=== PATIENT | male | born 1955 | race Caucasian/White ===

== ENCOUNTER 2020-01-29 09:48 | Outpatient (CLI) | payer BC, SELFPAY ==
--- NOTE | ~2020-01-29 | XR_ITS ---
XR_CERV2-3V_CR DATE: 01/29/2020 10:07 INDICATION: Neck pain, right shoulder pain TECHNIQUE: AP, open-mouth, lateral views COMPARISON: None FINDINGS: No fracture or dislocation or locked facet. C1 and C2 are normally aligned and the odontoid process is intact. No prevertebral soft tissue swelling. There is mild degenerative disc disease at C3-4. There is moderate degenerative disc disease at C4-5. There is mild degenerative disc disease at C5-6. There is uncovertebral joint spurring in the mid to lower cervical spine, most prominent on the right at C5-6 and C4-5. This may account for the right shoulder pain. IMPRESSION: Mild to moderate degenerative change of the cervical spine. Uncovertebral joint spurring of the mid to lower cervical spine, most prominent on the right at C4-5 and C5-6, which may account for the right shoulder pain Reviewed, dictated and finalized at [facility]. Reviewed, dictated and finalized at location [facility].
--- NOTE | ~2020-01-29 | XR_ITS ---
XR shoulder RT min 2V DATE: 01/29/2020 10:07 INDICATION: Right shoulder and neck pain TECHNIQUE: 4 views COMPARISON: None FINDINGS: There is mild osteoarthritis at the glenohumeral joint. No fracture or dislocation, periosteal reaction or bone destruction or significant abnormal calcifica tion is noted at the right shoulder joint. IMPRESSION: Mild right glenohumeral joint osteoarthritis Reviewed, dictated and finalized at location [facility].
== END 2020-01-29 09:49 | disposition home or self-care (01) ==
PROVIDERS: PCP Family Medicine; Visit Provider Physician Assistant
DX: M75.81 Other shoulder lesions, right shoulder (principal); M54.12 Radiculopathy, cervical region; M46.02 Spinal enthesopathy, cervical region; M19.011 Primary osteoarthritis, right shoulder
CPT/HCPCS: 72040; 73030

== ENCOUNTER 2020-09-20 08:42 | Outpatient (CLI) | payer BC, SELFPAY ==
--- NOTE | 2020-09-20 08:45 | ECG_ITS ---
Measurements Intervals [place] Rate: 63 P: 41 VA: 235 QRS: -29 QRSD: 106 T: 1 QT: 375 QTc: 386 Interpretive Statements SINUS RHYTHM WITH FIRST DEGREE AV BLOCK DELAYED PRECORDIAL R/S TRANSITION BORDERLINE T WAVE ABNORMALITY- INFERIOR LEADS BASELINE ARTIFACT- I, II, III, AVR, AVL, AVF ABNORMAL ECG Electronically Signed On 09-20-2020 10:47:22 TRACK PRODUCTION ENGINEER by Tano De La Garza D.O.
[2020-09-20 09:21] LABS: Potassium 4.2 mmol/L (3.4-5.0)
[2020-09-20 09:24] LABS: Blood Urea Nitrogen 22 mg/dL (9-20)
[2020-09-20 09:25] LABS: Anion Gap 7 mmol/L (8-16); Calcium 9.2 mg/dL (8.4-10.2); Carbon Dioxide 31 mmol/L (22-30); Chloride 99 mmol/L (98-107); Estimated Glomerular Filt Rate > 60; Glucose 104 mg/dL (75-110); Sodium 137 mmol/L (137-145)
== END 2020-09-20 08:43 | disposition home or self-care (01) ==
LOC: ANHSURGERY 08:45
PROVIDERS: Anesthesiology; PCP Family Medicine; Visit Provider Orthopaedic Surgery
DX: Z01.818 Encounter for other preprocedural examination (principal); I10 Essential (primary) hypertension; Z79.899 Other long term (current) drug therapy; R94.31 Abnormal electrocardiogram [ECG] [EKG]
CPT/HCPCS: 36415; 80048; 93005

== ENCOUNTER 2020-09-25 01:23 | Outpatient (CLI) | payer BC, SELFPAY ==
[2020-09-25 19:31] LABS: SARS-CoV-2 RNA PCR Negative
== END 2020-09-25 01:24 | disposition home or self-care (01) ==
LOC: ANHCOVIDDT 01:23
PROVIDERS: PCP Family Medicine; Visit Provider Orthopaedic Surgery
DX: Z01.812 Encounter for preprocedural laboratory examination (principal); Z20.828 Contact with and (suspected) exposure to other viral communicable diseases
CPT/HCPCS: 87635; C9803; U0003

== ENCOUNTER 2020-09-27 00:39 | Day surgery (SDC) | payer BC, SELFPAY ==
[2020-09-16 14:24] VITALS: BMI 33.5
[2020-09-27] VITALS (9 sets, daily range): BP systolic 117–155; BP diastolic 62–77; PULSE 76–91; RESP 16–19; TEMP 36.2–36.5; O2SAT 92–100; BMI 33.6
--- NOTE | 2020-09-27 08:23 | WPDANESEPPF ---
Anes - Initial Pre Proc Eval Procedure: Operation Date: 09/27/20 11:00 Proposed Procedures p Right Shoulder Arthroscopy,Subacromial Decompression, Proceed As Indicated - Enrique Wesley MD Date/Time: 09/27/20 08:23 Surgeon: Enrique Wesley MD Pre Op Diagnosis: Right Shoulder Impingement Patient Data Age: 65 Gender: M Height: 1.73 m Weight: 100 kg Allergies Allergy/AdvReac Type Severity Reaction Status Date / Time No Known Allergies Allergy Verified 09/27/20 09:23 Home Medications Medication Instructions Recorded Confirmed Type needle (disp) 25 gauge 25 gauge x #100 each 08/01/19 09/16/20 Rx 1 1/2 syringe with needle 3 mL 25 x 1 #100 each 10/21/19 09/16/20 Rx 1/2 irbesartan 300 1 tablet PO DAILY #90 tablet 10/28/19 09/27/20 Rx mg-hydrochlorothiazide 12.5 mg tablet sildenafil 100 mg tablet 100 mg PO DAILY PRN #10 tablet 01/14/20 09/27/20 Rx testosterone cypionate 200 mg/mL 200 mg IM .COMPLEX #10 ml 01/14/20 09/27/20 Rx intramuscular oil Patient hx anesthesia problems: none Family hx anesthesia problems: none PMFSH Past Medical History Medical History BMI 32.0-32.9,adult BMI 34.0-34.9,adult Hypertension Primary osteoarthritis, right shoulder Surgical History Surgical History History of carpal tunnel release Family History Family History Mother Hypertension Grandparent Family history of cardiovascular disease Family history of congestive heart failure, Onset Age: 80 Father Patient's father is in good health Social History Social History Smoking packs per day: 1.5 Smoking cigarettes per day: 30.0 Years smoked: 40 Smoking pack-years: 60.00 Smoking status: Former smoker Tobacco type: cigarettes Alcohol intake: never Substance use: current Substance use type: marijuana Last use: 2011 Living arrangements: with family 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 Gender identity (if verbalized by the patient): Male Sexual Orientation (if Verbalized by the Patient): Straight or Heterosexual Spiritual care concerns: No Anes - Eval Final PreProcedure Day of Procedure 09/27/20 08:23 Patient weight: obese Heart: regular rate and rhythm Lungs: clear to auscultation and normal air movement Airway: Mallampati scale class II Neurological: alert and oriented Last oral intake: >/= 8 hours ASA classification: III Emergent: no Anesthetic plan: proceed Anesthesia type and monitoring: general ETT and standard monitoring Informed Consent: The patient's anesthetic plan and its attendant risks and benefits were discussed with the patient/family/POA. Questions were solicited and answers provided to the satisfaction of the patient/family/POA.
--- NOTE | 2020-09-27 08:24 | WPDANESPNB ---
Anes - Peripheral Nerve Block Date/Time: 09/27/20 08:24 I have discussed with the patient/family/POA the placement of a peripheral nerve block for post-operative pain management, including associated risks, benefits, complications, and side effects. Alternative methods of post-operative analgesia were detailed. Questions were solicited and answers provided to the satisfaction of the patient/family/POA. Time-Out: A pre-procedural Time-Out was completed immediately before starting the procedure and confirmed: Patient Identification, Site, Procedure, Patient Position and the Availability of Requisite Equipment. Clinical Indications: Acute post-operative pain management requested by the operative surgeon. Nerve Block Insertion Note Anes-nerve block: interscalene right Patient position: supine Skin prep: chlorhexidine Needle: 22 gauge, stimulating, insulated echogenic needle. Needle length: 50 mm Technique: ultrasound Injectate: bupivacaine 0.5% with epi 5 mcg/ml (30cc) Observations: tolerated well Complications: none Procedure start time:: 1036 Procedure end time:: 1038
[2020-09-27] MEDS: ACETAMINOPHEN 500 MG TABLET 1000 MG PO (09:45)
[2020-09-27] MEDS: LACTATED RINGERS 1,000 ML 30 ML IV CONT ×2 (09:45→12:01)
[2020-09-27] MEDS: KETOROLAC 15 MG/ML VIAL (*BKC) IV PUSH (09:45)
--- NOTE | 2020-09-27 10:20 | WPDHPUPDATE1 ---
History and Physical Update Update Date/Time: 09/27/20 10:20 History and Physical has been reviewed, including an updated exam of the patient. There are NO changes in the patient's condition. Risks, benefits, and alternatives have been discussed and questions answered. Patient agrees to proceed with procedure.
--- NOTE | 2020-09-27 10:25 | SUR.PREOP ---
PT RECEIVING NERVE BLOCK
[2020-09-27] MEDS: ceFAZolin 2 GM/D5W 50 ML 2 GM/50 ML BAG IVPB (10:45)
[2020-09-27] MEDS: LIDO 1%/EPINEPHRINE 1:100,000 50 ML VIAL 20 ML INFILTRATE (11:33)
--- NOTE | 2020-09-27 11:59 | PM.PROC ---
Procedure Note - Detailed Date of procedure: 09/27/20 Pre-op diagnosis: Right Shoulder Impingement Post-op diagnosis: same Procedure performed: Right shoulder arthroscopy with limited intra-articular synovectomy and arthroscopic subacromial decompression Description of procedure: The patient was identified and proper site identified. In the preop holding area the anesthesia team performed a right upper extremity block. He was then taken to the operating, transferred to the OR table and after general anesthetic induction and intubation placed into the semi beach chair position in the usual manner for a right shoulder procedure. His head was secured taking care to neither rotate or extend the head neck. The right upper extremity was prepped and draped free in the usual sterile fashion. 10 mL of 1% lidocaine and epinephrine solution was injected into the subacromial space at the start of the procedure, and an additional 10 at the end. 10 cc of 1% lidocaine and epinephrine solution was injected in the area of the portals. Posterior portal was established and under direct visualization anterior outflow was created. Intra-articularly, there was quite a bit of degeneration of the articular surfaces of the glenoid as well as the humeral head. There is also moderate amount of synovitis. The anterior portion of supraspinatus attachment had some fraying at the undersurface this gently debrided with the shaver as was some the flame some medial tissue. Arthrocare Wand was used for hemostasis. Next the scope, outflow and shaver were placed into the subacromial space. Lateral working portal was used. Extensive subacromial debridement removing thickened bursal tissue was carried out. The undersurface of the acromion was cleared of soft tissue with the ArthroCare Wand and the CA ligament was released from the anterior portion of the acromion. Hemostasis was also carried out with the ArthroCare Wand in the subacromial space. The entire surgical area was irrigated with saline solution and the equipment was removed. Portals were closed with three 0 nylon suture and sterile dressings applied. He tolerated the procedure well. He was awakened, extubated and taken to recovery area in stable condition. There were no known intraoperative complications. Estimated blood loss was negligible. He received perioperative antibiotics. Anesthesia: GLMA Surgeon: Enrique Wesley MD Leasing Property Manager: Abbi Herr Estimated blood loss (mL): 15 Drains: No Packing: No Pathology: none sent Complications: No immediate complications Condition: stable Disposition: PACU
--- NOTE | 2020-09-27 13:52 | SUR.PHASEII ---
PATIENT ASSISTED WITH DRESSING TO HOLD HIS RIGHT ARM. SLING INTACT WITH ICE TO RIGHT SHOULDER.
== END 2020-09-27 14:00 | disposition home or self-care (01) ==
PROVIDERS: PCP Family Medicine; Visit Provider Orthopaedic Surgery
PROC: (CPT 29805; principal; 2020-09-27 11:00)
DX: M75.41 Impingement syndrome of right shoulder (principal); M65.811 Other synovitis and tenosynovitis, right shoulder; M19.011 Primary osteoarthritis, right shoulder; G89.18 Other acute postprocedural pain; I10 Essential (primary) hypertension; Z87.891 Personal history of nicotine dependence; E66.9 Obesity, unspecified; Z68.33 Body mass index [BMI] 33.0-33.9, adult
CPT/HCPCS: 29823; 64415; A4565; A9270; J0690; J1885; J2250; J2405; J2704; J3010; J7120

== ENCOUNTER 2020-10-26 10:00 | Outpatient (RCR) | payer BC, SELFPAY ==
[2020-09-29 09:33] VITALS: BP_SYST 85
--- NOTE | 2020-09-29 10:26 | PTOPEVAL ---
PHYSICAL THERAPY EVALUATION AND PLAN OF CARE Thank you for referring Jose Ramon Helm to [facility].? The patient is scheduled to be seen for therapy?2x/week for 3-6 weeks. Please review, sign, date and return this plan of care RAPHAEL. I agree with and certify that the following plan of care is medically necessary. Referring Physician Date Attending Provider: Enrique Wesley MD Evaluation Outpatient Past Medical History Cardiovascular History Hx Hypertension Yes Hx Other Cardiac Disorders Yes: HYPERLIPIDEMIA Musculoskeletal History Hx Arthritis Yes Hx Fractures Yes: FINGERS Hx Other Musculoskeletal Disorders Yes: CARPAL TUNNEL Pain History Has Past Pain Affected Your Daily Life Yes: RT SHOULDER Anesthesia History Hx Post-Op Nausea/Vomiting Yes right arthroscopy shoulder Onset 09/27/2020 Subjective Information Surgery s/p 2 days to debride Query Text:As Reported By Patient/ and perform arthroscopy of Family right shoulder. Since nerve block wore off he states that if he does not move it, it does not hurt. He can straighten and bend elbow. Sleeping sitting in recliner. Does have pain medication available orally. Self Report Pain Assessment Right Shoulder(s) Reported Pain Level 0 Pain Description Aching Pain Frequency Acute,Continuous Lowest Pain Intensity 0 Greatest Pain Intensity 8 Other Pain Aggravating Factors movement Pain Score Pain Score 0: Self Report Interventions Used Interventions Used By Clinicians Exercise,Ice Pain Relief Interventions Used By Ice,Medication Patient Upper Extremity Range of Motion Scapular/ Shoulder Range of Motion Right Reason Not Measured Surgery Precautions Shoulder Flexion - Passive 110 Shoulder Abduction - Passive 85 Shoulder Lateral Rotation - Passive 55 Upper Extremity Muscle Strength Testing General Upper Extremity Strength Gross Upper Extremity Strength Comments performed full AROM of right elbow, wrist, and fingers; discussed allowing arm to rest at side or to use sling, but not to hold the arm up in guarded position. Scapular/Shoulder Right Reason Not Measured Surgery Precautions Palpation right pectoralis muscles holding tension and tightness; PT Clinical Summary Jose Ramon is a 65 yo male presenting
--- NOTE | 2020-10-04 16:12 | PCPTNOTE ---
Patient called & cancelled scheduled appointment this date due to running late for appointment.
--- NOTE | 2020-10-18 08:19 | PCPTNOTE ---
Patient called & cancelled scheduled appointment this date due to illness.
--- NOTE | 2020-10-20 10:47 | PTOPEVAL ---
PHYSICAL THERAPY PLAN OF CARE UPDATE Thank you for referring Jose Ramon Helm to [facility].? The patient is scheduled to be seen for therapy? 1x/week for 3 weeks to progress strengthening and reinforce ROM and manual techniques. Please review, sign, date and return this plan of care RAPHAEL. I agree with and certify that the following plan of care is medically necessary. Referring Physician Date Attending Provider: Enrique Wesley MD Progress Diagnosis right arthroscopy shoulder Onset 09/27/2020 Subjective Information Surgery s/p 3weeks to debride Query Text:As Reported By Patient/ and perform arthroscopy of Family right shoulder. States that he feels pain for 2 days with a little bit of exercise. He does report that he is able to reach to the side table by the bed when he was not able to before. States that the pain right now feels similar to the pain he had before surgery. Self Report Pain Assessment Right Shoulder(s) Reported Pain Level 3 Pain Description Soreness Pain Frequency Acute,Continuous Other Pain Aggravating Factors movement Pain Score Pain Score 3: Self Report Additional Pain Score Comments just stiff this morning Interventions Used Interventions Used By Clinicians Exercise,Ice Pain Relief Interventions Used By Ice,Medication Patient Other Alleviating Interventions tylenol Upper Extremity Range of Motion Scapular/ Shoulder Range of Motion Right Reason Not Measured Surgery Precautions Shoulder Flexion - Active 145 Shoulder Abduction - Active 150 Shoulder Medial Rotation - Active L5 Query Text:Reach Behind the Back Shoulder Lateral Rotation - Active 85 Scapular/Shoulder Range of Motion shoulder internal rotation Comments quite limited and painful today; continuing to address with manual therapy and glenohumeral joint work Upper Extremity Muscle Strength Testing Scapular/Shoulder Right Shoulder Flexion Strength 4 Good Shoulder Extension Strength 4- Good - Shoulder Medial Rotation Strength 5 Normal Shoulder Lateral Rotation Strength 5 Normal Rehab Teaching Rehab Teaching Teaching Topic Rehab Teaching Topic Components Diagnosis,Follow-up Recommendations,Home Program As Pertains To Plan of Care Discussion,Safety ,Technique Recipient P
--- NOTE | 2020-11-01 13:01 | PCPTNOTE ---
PHYSICAL THERAPY DISCHARGE NOTE Attending Provider: Enrique Wesley MD Patient:Jose Ramon Helm Date of :1955 Jose Ramon called and cancelled his last 2 appointments due to feeling better. He is aware that if he needs further therapy, he will need a new PT order. He will be discharged at this time. Patient?s initial visit was on 09/29/2020. The goals have been partially met. Thank you for referring this patient to [facility]. Please review, sign, date and return this discharge summary RAPHAEL. I have been updated about the patient's current status and I agree with discharge from the above service at this time. Referring Physician Date
== END 2020-11-02 08:02 | disposition home or self-care (01) ==
LOC: ANHPT 10:00
PROVIDERS: PCP Family Medicine; Visit Provider Orthopaedic Surgery
DX: M75.41 Impingement syndrome of right shoulder (principal)
CPT/HCPCS: 97110; 97140; 97161

== ENCOUNTER 2020-11-25 07:57 | Outpatient (CLI) | payer BC, SELFPAY ==
[2020-11-25 08:40] LABS: Anion Gap 5 mmol/L (8-16); Blood Urea Nitrogen 17 mg/dL (9-20); Calcium 8.7 mg/dL (8.4-10.2); Carbon Dioxide 31 mmol/L (22-30); Chloride 102 mmol/L (98-107); Estimated Glomerular Filt Rate > 60; Glucose 100 mg/dL (75-110); Potassium 4.3 mmol/L (3.4-5.0); Sodium 138 mmol/L (137-145)
== END 2020-11-25 07:58 | disposition home or self-care (01) ==
LOC: ANHSURGERY 08:00
PROVIDERS: Anesthesiology; PCP Family Medicine; Visit Provider Orthopaedic Surgery
DX: Z51.81 Encounter for therapeutic drug level monitoring (principal); Z79.899 Other long term (current) drug therapy; I10 Essential (primary) hypertension
CPT/HCPCS: 36415; 80048

== ENCOUNTER → 2020-11-26 00:23 | Outpatient (CLI) | payer BC, SELFPAY ==
[2020-11-26 17:47] LABS: SARS-CoV-2 RNA PCR Negative
== END ==
PROVIDERS: PCP Family Medicine; Visit Provider Orthopaedic Surgery
DX: Z01.812 Encounter for preprocedural laboratory examination (principal); Z20.822 Contact with and (suspected) exposure to COVID-19
CPT/HCPCS: C9803; U0003; U0005

== ENCOUNTER 2020-11-29 00:49 | Day surgery (SDC) | payer BC, SELFPAY ==
[2020-11-22 14:36] VITALS: BMI 35.0
[2020-11-29 09:10] VITALS: BP 120/80; PULSE 87; RESP 18; TEMP 36.2; O2SAT 94
[2020-11-29] MEDS: LACTATED RINGERS 1,000 ML 30 ML IV CONT ×2 (09:25→11:33)
[2020-11-29] MEDS: KETOROLAC 15 MG/ML VIAL (*BKC) IV PUSH (09:30)
[2020-11-29] MEDS: ACETAMINOPHEN 500 MG TABLET 1000 MG PO (09:31)
--- NOTE | 2020-11-29 09:57 | WPDANESEPPF ---
Anes - Initial Pre Proc Eval Procedure: Operation Date: 11/29/20 12:00 Proposed Procedures p Excision Flexor Tendon Sheath Ganglion and Simultaneous Trigger Finger Release Left Fourth Digit - Enrique Wesley MD Date/Time: 11/29/20 09:57 Surgeon: Enrique Wesley MD Pre Op Diagnosis: left 4th digit tendon sheath ganglion, amelia fing Patient Data Age: 65 Gender: M Height: 1.73 m Weight: 105.6 kg Last Vital Signs Temp 36.2 C L 11/29/20 09:10 Pulse 87 11/29/20 09:10 Resp 18 11/29/20 09:10 BP 120/80 11/29/20 09:10 Pulse Ox 94 11/29/20 09:10 Allergies Allergy/AdvReac Type Severity Reaction Status Date / Time No Known Allergies Allergy Verified 11/29/20 09:44 Home Medications Medication Instructions Recorded Confirmed Type needle (disp) 25 gauge 25 gauge x #100 each 08/01/19 11/17/20 Rx 1 1/2 syringe with needle 3 mL 25 x 1 #100 each 10/21/19 11/17/20 Rx 1/2 sildenafil 100 mg tablet 100 mg PO DAILY PRN #10 tablet 01/14/20 11/29/20 Rx testosterone cypionate 200 mg/mL 200 mg IM .COMPLEX #10 ml 10/18/20 11/29/20 Rx intramuscular oil irbesartan 300 1 tablet PO DAILY #90 tablet 11/09/20 11/29/20 Rx mg-hydrochlorothiazide 12.5 mg tablet Patient hx anesthesia problems: none Family hx anesthesia problems: none PMFSH Past Medical History Medical History BMI 32.0-32.9,adult BMI 34.0-34.9,adult BMI 36.0-36.9,adult Hypertension Primary osteoarthritis, right shoulder Surgical History Surgical History History of carpal tunnel release Subacromial impingement of right shoulder Arthroscopic subacromial decompression August 2020 Family History Family History Mother Hypertension Grandparent Family history of cardiovascular disease Family history of congestive heart failure, Onset Age: 80 Father Patient's father is in good health Social History Social History Smoking packs per day: 1 Smoking cigarettes per day: 20.0 Years smoked: 40 Smoking pack-years: 40.00 Smoking status: Former smoker Tobacco type: cigarettes Smoking end date: 11/22/10 Alcohol intake: never Substance use: current Substance use type: marijuana Last use: 2011 Living arrangements: with family 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 Questions were solicited and answers provided to the satisfaction of the patient/family/POA.
--- NOTE | 2020-11-29 10:23 | WPDHPUPDATE1 ---
History and Physical Update Update Date/Time: 11/29/20 10:23 History and Physical has been reviewed, including an updated exam of the patient. There are NO changes in the patient's condition. Risks, benefits, and alternatives have been discussed and questions answered. Patient agrees to proceed with procedure.
[2020-11-29] MEDS: ceFAZolin 2 GM/D5W 50 ML 2 GM/50 ML BAG IVPB (10:56)
[2020-11-29 11:33] VITALS: BP 106/73; PULSE 57; RESP 16; TEMP 36.2; O2SAT 100
[2020-11-29 11:45] VITALS: BP 105/78; PULSE 57; RESP 14; O2SAT 100
--- NOTE | 2020-11-29 11:49 | P.OP_ITS ---
Procedure Note - Detailed Date of procedure: 11/29/20 Pre-op diagnosis: left 4th digit tendon sheath ganglion, amelia fing Post-op diagnosis: same Procedure performed: Excision mass left fourth digit flexor tendon sheath with concomitant trigger finger release Description of procedure: The patient was identified and proper site identified. He was taken to the operating room and transferred to the OR table placing supine taking care to pad the torso and extremities. After general anesthetic induction and intubation a nonsterile tourniquet was placed high on the left arm which was prepped and draped in the usual sterile fashion. Several cc of .25 % plain Marcaine was injected into the subcutaneous tissue over the A1 julian of the left fourth digit. The extremity was exsanguinated and the tourniquet was inflated to 200 mmHg remaining up for about nine minutes. A longitudinal incision was made over the A1 julian. Subcutaneous tissue was bluntly dissected down to the julian while protecting the neurovascular bundles. There was a large mass overlying the proximal aspect of the A1 julian which was dissected free. It was opened up in appeared to be cystic but it did have a solid component. It was sent for histopathologic examination. The A1 julian was identified and then transected longitudinally in line with the incision and tendons. The tendons were delivered into the wound verifying the adequacy of the release. Hemostasis was carried out. The wound was irrigated with sterile saline. Skin edges were reapproximated with 4-0 nylon suture. Sterile dressing was applied. Tourniquet was released. He tolerated the procedure well and was transferred back to a cart, then taken to the recovery area in stable condition. There were no known intraoperative complications. Estimated blood loss was negligible. Perioperative antibiotics were administered. Anesthesia: GLMA Surgeon: Enrique Wesley MD Manager Programming: Jonas Peralta Estimated blood loss (mL): 1 Tourniquet time (min): 9 Drains: No Packing: No Pathology: none sent Complications: No immediate complications Condition: stable Disposition: PACU
[2020-11-29 11:58] VITALS: BP 100/70; PULSE 57; RESP 12; O2SAT 97
[2020-11-29 12:01] VITALS: BP 107/75; PULSE 56; RESP 12
[2020-11-29 12:31] VITALS: BP 122/79; PULSE 60; RESP 12
== END 2020-11-29 12:46 | disposition home or self-care (01) ==
PROVIDERS: PCP Family Medicine; Visit Provider Orthopaedic Surgery
PROC: (CPT 26055; principal; 2020-11-29 12:00)
DX: M67.442 Ganglion, left hand (principal); M65.342 Trigger finger, left ring finger; I10 Essential (primary) hypertension; Z87.891 Personal history of nicotine dependence; E66.9 Obesity, unspecified; Z68.35 Body mass index [BMI] 35.0-35.9, adult
CPT/HCPCS: 26160; 88304; A9270; C9803; J0690; J1100; J1885; J2250; J2405; J2704; J3010; J7120; U0003; U0005

== ENCOUNTER 2020-12-24 19:35 | Emergency (ER) | payer BC, SELFPAY ==
[2020-12-24] VITALS (9 sets, daily range): BP systolic 109–144; BP diastolic 65–89; PULSE 74–106; RESP 13–22; TEMP 37.1; O2SAT 96–98
--- NOTE | ~2020-12-24 | XR_ITS ---
EXAMINATION: XR chest 1V portable EXAM DATE: 12/24/2020 21:50 INDICATION: Cough with generalized weakness. TECHNIQUE: Portable AP frontal chest x-ray was obtained. Comparison is made to prior examination from 01/20/2019. FINDINGS: Possible small amount of right perihilar acute airspace disease, pneumonia. There are no pl eural effusions. Cardiac silhouette is prominent but magnified on this AP technique. There is no p neumothorax suspected. The bones and soft tissues are unremarkable. IMPRESSION: Possible small amount of right perihilar pneumonia. Reviewed, dictated and finalized at location G.
[2020-12-24] MEDS: SODIUM CHLORIDE 0.9% IV 1,000 ML 999 ML IV CONT (20:53)
[2020-12-24] MEDS: KETOROLAC 30 MG/ML VIAL (*BKC) IV PUSH (20:53)
[2020-12-24] MEDS: ACETAMINOPHEN 500 MG TABLET 1000 MG PO (20:53)
[2020-12-24 21:03] LABS: Basophils Percent Auto 0.3 % (0.2-1.2); Eosinophils Percent Auto 0.2 % (0-4.4); Hematocrit 43.2 % (42.0-52.0); Hemoglobin 14.2 g/dL (14.0-18.0); Immature Granulocyte Absolute 0.07 K/mm3 (0.00-0.031); Immature Granulocyte Percent A 0.6 % (0-0.5); Lymphocytes Absolute Auto 1.05 K/mm3 (0.9-3.2); Lymphocytes Percent Auto 8.7 % (18.3-44.2); Mean Corpuscular HGB Conc 32.9 g/dl (32-36); Mean Corpuscular Hemoglobin 29.3 pg (26-34); Mean Corpuscular Volume 89.3 fl (80-100); Mean Platelet Volume 10.4 fl (7.4-10.4); Monocytes Absolute Auto 0.7 K/mm3 (0.1-0.6); Monocytes Percent Auto 5.5 % (2.6-8.5); Neutrophils Absolute Auto 10.2 K/mm3 (1.3-6.7); Neutrophils Percent Auto 84.7 % (45.5-73.1); Platelet Count Result 207 k/mm3 (150-375); Red Blood Count 4.84 M/mm3 (4.6-6.20); Red Cell Distribution Width 14.3 % (11.5-14.5); White Blood Count 12.1 K/mm3 (4.5-10.0)
[2020-12-24 21:13] LABS: Lactic Acid Reflex 0.7 mmol/L (0.7-2.1)
[2020-12-24 21:14] LABS: Alanine Aminotransferase 32 U/L (4-50); Albumin Level 3.7 g/dL (3.5-5.1); Alkaline Phosphatase 65 U/L (38-126); Anion Gap 4 mmol/L (8-16); Aspartate Amino Transferase 38 U/L (17-59); Bilirubin,Total 1.2 mg/dL (0.2-1.3); Blood Urea Nitrogen 19 mg/dL (9-20); Calcium 8.5 mg/dL (8.4-10.2); Carbon Dioxide 27 mmol/L (22-30); Chloride 102 mmol/L (98-107); Estimated CRCL calculation 77 ml/min; Estimated Glomerular Filt Rate > 60; Glucose 117 mg/dL (75-110); Potassium 3.6 mmol/L (3.4-5.0); Sodium 133 mmol/L (137-145)
[2020-12-24 21:23] LABS: Add Urine Microscopic? YES; Appearance Urine Cloudy (Clear); Bilirubin Urine Negative (Negative); Blood Urine Negative (Negative); Color Urine Amber (Yellow); Glucose Urine UA Negative (Negative); Ketones Urine 1+ mg/dL (Negative); Leukocyte Esterase Ur Negative LEU/UL (Negative); Mucus Urine Rare /lpf; Nitrate Urine Negative (Negative); Protein Urine 2+ mg/dL (Negative); RBC Urine 0-2 /hpf (0-2); Specific Grav Ur 1.029 (1.001-1.035); Urobilinogen Urine Negative mg/dL (<2.0); WBC Urine 0-3 /hpf
--- NOTE | 2020-12-24 22:40 | ED.GENADULT ---
HPI - General Adult General Chief complaint: Fever Stated complaint: body aches/ fever Time Seen by Provider: 12/24/20 20:27 History of Present Illness HPI narrative: Patient is a 65-year-old gentleman who presents to the emergency department chief complaint of body aches and fever. The patient reports the symptoms started yesterday states that he had a temperature up to 101. Patient denies cough denies shortness of breath denies vomiting or diarrhea. Patient reports symptoms are not improved by anything or they worsen by anything. Patient reports that he is scheduled to have his COVID-19 vaccine on Sunday Related Data Allergies Allergy/AdvReac Type Severity Reaction Status Date / Time No Known Allergies Allergy Verified 11/29/20 09:44 Review of Systems Review of Systems: Narrative: A 10 system review of systems was completed on the patient and is negative except for what is stated in the HPI. Nursing and ancillary documentation was reviewed. PMFSH Past Medical History Medical History BMI 32.0-32.9,adult BMI 34.0-34.9,adult BMI 36.0-36.9,adult Hypertension Primary osteoarthritis, right shoulder Surgical History Surgical History History of carpal tunnel release Subacromial impingement of right shoulder Arthroscopic subacromial decompression August 2020 Family History Family History Mother Hypertension Grandparent Family history of cardiovascular disease Family history of congestive heart failure, Onset Age: 80 Father Patient's father is in good health Social History Social History Smoking packs per day: 1 Smoking cigarettes per day: 20.0 Years smoked: 40 Smoking pack-years: 40.00 Smoking status: Former smoker Tobacco type: cigarettes Smoking end date: 11/22/10 Alcohol intake: never Substance use: current Substance use type: marijuana Last use: 2011 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 HEAD: Normocephalic, atraumatic. EYES: PERRLA and EOMI. ENT: Nares clear, no rhinorrhea or epistaxis. Mucous membranes moist. NECK: Supple. CHEST: Clear to auscultation. No respiratory distress. HEART: Regular rate and rhythm. No murmur heard. Normal peripheral pulses. ABDOMEN: Soft, nontender, nondistended, normal active bowel sounds. EXTREMITIES: Normal range of motion. No edema. SKIN: Warm, dry, no rash. NEURO: No focal deficits. Alert and oriented x3. PSYCH: Normal mood and affect. Course Vital Signs Vital signs: Vital Signs Temperature 37.1 C 12/24/20 19:41 Pulse Rate 106 H 12/24/20 19:41 Respiratory Rate 20 12/24/20 19:41 Blood Pressure 144/89 H 12/24/20 19:41 Pulse Oximetry 96 12/24/20 19:41 Temperature 37.1 C 12/24/20 19:41 Pulse Rate 106 H 12/24/20 19:41 Respiratory Rate 20 12/24/20 19:41 Blood Pressure 144/89 H 12/24/20 19:41 Pulse Oximetry 96 12/24/20 19:41 Medical Decision Making Vital Signs Vital Signs: Vital Signs Temperature 37.1 C 12/24/20 19:41 Pulse Rate 106 H 12/24/20 19:41 Respiratory Rate 20 12/24/20 19:41 Blood Pressure 144/89 H 12/24/20 19:41 Pulse Oximetry 96 12/24/20 19:41 Temperature 37.1 C 12/24/20 19:41 Pulse Rate 106 H 12/24/20 19:41 Respiratory Rate 20 12/24/20 19:41 Blood Pressure 144/89 H 12/24/20 19:41 Pulse Oximetry 96 12/24/20 19:41 Lab Data Result diagrams: 12/24/20 20:54 12/24/20 20:54 Labs: Lab Results 12/24/20 12/24/20 12/24/20 Range/Units 20:54 20:54 20:54 WBC 12.1 H
[2020-12-25 20:23] LABS: SARS-CoV-2 RNA PCR Negative
== END 2020-12-24 23:08 | disposition home or self-care (01) ==
PROVIDERS: Emergency Provider Emergency Medicine; PCP Family Medicine
DX: J18.9 Pneumonia, unspecified organism (principal); Z20.822 Contact with and (suspected) exposure to COVID-19; I10 Essential (primary) hypertension; M19.011 Primary osteoarthritis, right shoulder; Z87.891 Personal history of nicotine dependence
CPT/HCPCS: 36415; 71045; 80053; 81001; 83605; 85025; 87081; 87804; 87880; 96361; 96374; 99284; A9270; C9803; J1885; J7030; U0003; U0005

== ENCOUNTER → 2021-10-26 09:56 | Outpatient (CLI) | payer BC, SELFPAY ==
[2021-10-26 19:37] LABS: SARS-CoV-2 RNA PCR Positive
[2021-10-27 10:53] LABS: Influenza A QL RT-PCR Negative (Negative); Influenza B QL RT-PCR Negative (Negative)
== END ==
PROVIDERS: PCP Family Medicine; Visit Provider Family Medicine
DX: U07.1 COVID-19 (principal)
CPT/HCPCS: 87502; C9803; U0003; U0005

== ENCOUNTER → 2021-11-16 13:39 | Outpatient (CLI) | payer BC, SELFPAY ==
--- NOTE | ~2021-11-16 | XR_ITS ---
EXAMINATION: XR lumbar spine 2-3V DATE: 11/16/2021 13:54 INDICATION: Low back pain, unspecified TECHNIQUE: Anteroposterior and lateral views of the lumbar spine, and cone-down lateral view of the l umbosacral junction were obtained. COMPARISON: 08/08/2019 FINDINGS: There is no fracture, dislocation, or subluxation. There is unchanged mild loss of interver tebral disc space height from L3-4 through L5-S1. The vertebral body heights are maintained. Small de generative osteophytes project from the anterior endplates of multiple vertebral bodies. There is mil d facet osteoarthritis of the lower lumbar spine. Calcified atherosclerosis is noted. IMPRESSION: 1. Mild lumbar spondylosis without acute findings or significant interval change. Reviewed, dictated and finalized at location A. AL HELPER IMPRESSION: 1. Mild lumbar spondylosis without acute findings or significant interval lyric castillo
== END ==
PROVIDERS: PCP Family Medicine; Visit Provider Physician Assistant
DX: M54.50 Low back pain, unspecified (principal); M47.816 Spondylosis without myelopathy or radiculopathy, lumbar region
CPT/HCPCS: 72100

== ENCOUNTER → 2021-12-15 12:36 | Outpatient (CLI) | payer BC, SELFPAY ==
--- NOTE | ~2021-12-15 | XR_ITS ---
EXAMINATION: XR chest 2V 12/15/2021 12:50 INDICATION: Shortness of breath PROCEDURE: 2 view chest COMPARISON: 12/24/2020 FINDINGS: The lungs are clear. The cardiomediastinal silhouette is within normal limits. There are no pleural effusions. There is no pneumothorax suspected. IMPRESSION: 1: NO ACUTE CARDIOPULMONARY DISEASE. Reviewed, dictated and finalized at location B.
== END ==
PROVIDERS: PCP Family Medicine; Visit Provider Physician Assistant
DX: R06.02 Shortness of breath (principal)
CPT/HCPCS: 71046

== ENCOUNTER 2022-06-14 08:06 | Outpatient (CLI) | payer BC, SELFPAY ==
--- NOTE | 2022-07-04 14:46 | WPDHOMESLEEP ---
Sleep Study - Home Unattended Date of Study: 06/14/22 Ordering Provider: Adela Farrell DO Interpreting Provider: Adela Farrell DO Home Sleep Study Type: Apnea Link Air Height: 1.71 m Weight: 107.048 kg Body Mass Index: 36.3 Neck Circumference (inches): 16.75 [place]: 11 Reason for Sleep Study Snoring, HTN, Mallampati 4 Sleep History The patient is a 66-year-old male with hypertension, obesity history of tobacco abuse that had a sleep study ordered for evaluation of sleep apnea. 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 The patient denies awakening from sleep short of breath. He rarely awakens at night with heartburn, belching or cough. He constantly snores loud enough that others complain. He denies having trouble sleeping when he has a cold. He denies waking up gasping for air throughout the night. He frequently has breathing problems at night observed by himself or others. He denies sweating excessively at night. He denies having heart palpitations or irregular heartbeats during the night. He occasionally falls asleep during the day but never while driving. He denies sleep paralysis and cataplexy. He occasionally has trouble at school or work due to sleepiness. He occasionally experiences vivid dreamlike scenes upon awakening or falling asleep. He denies feeling afraid of going asleep. He occasionally has nightmares. He frequently remembers his dreams. He frequently has thoughts racing through his mind. He rarely feels sad or depressed. He occasionally has anxiety. He occasionally has muscular tension. He occasionally notices parts of his body jerk. He occasionally kicks during the night. He rarely experiences crawling and aching feelings in his legs but never has leg pain during the night. He denies grinding his teeth during sleep and awakening with morning jaw pain. He is constantly bothered by pain during the day but never awakened by pain during the night. He constantly wakes up feeling stiff in the morning. He occasionally wakes up with sore achy muscles. He occasionally wakes up with pain in the neck, spine or other joints. He goes to bed at 10:00 p.m. on both weekdays and weekends. It takes him 5 minutes to fall asleep. He wakes up twice throughout the night to urinate. He is able to fall back asleep within 10 minutes. He wakes up at 5:00 a.m. on both weekdays and weekends. He typically gets 6 hours of sleep per night. He does not stay in bed after waking up in the morning. He currently lives with his . He does not consume any caffeinated beverages within 2 hours of bedtime. He does not engage in physical exercise before bedtime. He will watch television before falling asleep. He denies reading before falling asleep. He will take naps in the afternoon or the evening and they are refreshing. He drinks 2 cups of caffeinated beverage per day. He quit smoking cigarettes in 2010. He denies alcohol use. He will use marijuana occasionally. [facility] Past Medical History Medical History BMI 32.0-32.9,adult BMI 34.0-34.9,adult BMI 36.0-36.9,adult Hypertension Primary osteoarthritis, right shoulder Surgical History Surgical History History of carpal tunnel release Subacromial impingement of right shoulder Arthroscopic subacromial decompression August 2020 Family History Family History Mother Hypertension Grandparent Family history of cardiovascular disease Family history of congestive heart failure, Onset Age: 80 Father Patient's father is in good health Social History Social History Smoking packs per day: 1 Smoking cigarettes per day: 20.0 Years smoked: 40 Smoking pack-years: 40.00 Smoking status: Former smoker Tobacco type: cig
[2022-07-04 14:53] VITALS: BMI 36.3
--- NOTE | 2022-08-29 15:38 | SLEEP ---
pt in for pap titration [id number]
== END 2022-06-15 11:46 | disposition home or self-care (01) ==
PROVIDERS: PCP Family Medicine; Visit Provider Family Medicine
DX: G47.33 Obstructive sleep apnea (adult) (pediatric) (principal)
CPT/HCPCS: 95806

== ENCOUNTER 2022-08-22 08:12 | Outpatient (CLI) | payer MEDICARE, OTHER, SELFPAY ==
--- NOTE | 2022-09-12 17:42 | WPDSLEEPSTUD ---
Sleep Study Date of Study: 08/22/22 Ordering Provider: Adela Farrell DO Interpreting Physician: Adela Farrell DO Sleep Study Type: CPAP Titration Height: 1.68 m Weight: 100.698 kg Body Mass Index: 35.8 Neck Circumference (inches): 17 [place]: 11 Reason for Sleep Study The patient had an Apnea Link on 06/14/2022 that showed an overall AHI of 32.2 with desaturation down to 81%. Sleep History The patient is a 67-year-old male with hypertension, obesity history of tobacco abuse that had a sleep study ordered for evaluation of sleep apnea.? 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 The patient denies awakening from sleep short of breath.? He rarely awakens at night with heartburn, belching or cough.? He constantly snores loud enough that others complain.? He denies having trouble sleeping when he has a cold.? He denies waking up gasping for air throughout the night.? He frequently has breathing problems at night observed by himself or others.? He denies sweating excessively at night.? He denies having heart palpitations or irregular heartbeats during the night.? He occasionally falls asleep during the day but never while driving.? He denies sleep paralysis and cataplexy.? He occasionally has trouble at school or work due to sleepiness.? He occasionally experiences vivid dreamlike scenes upon awakening or falling asleep.? He denies feeling afraid of going asleep.? He occasionally has nightmares.? He frequently remembers his dreams.? He frequently has thoughts racing through his mind.? He rarely feels sad or depressed.? He occasionally has anxiety.? He occasionally has muscular tension.? He occasionally notices parts of his body jerk.? He occasionally kicks during the night.? He rarely experiences crawling and aching feelings in his legs but never has leg pain during the night.? He denies grinding his teeth during sleep and awakening with morning jaw pain.? He is constantly bothered by pain during the day but never awakened by pain during the night.? He constantly wakes up feeling stiff in the morning.? He occasionally wakes up with sore achy muscles.? He occasionally wakes up with pain in the neck, spine or other joints.? He goes to bed at 10:00 p.m. on both weekdays and weekends.? It takes him 5 minutes to fall asleep.? He wakes up twice throughout the night to urinate.? He is able to fall back asleep within 10 minutes.? He wakes up at 5:00 a.m. on both weekdays and weekends.? He typically gets 6 hours of sleep per night.? He does not stay in bed after waking up in the morning.? He currently lives with his .? He does not consume any caffeinated beverages within 2 hours of bedtime.? He does not engage in physical exercise before bedtime.? He will watch television before falling asleep.? He denies reading before falling asleep.? He will take naps in the afternoon or the evening and they are refreshing.? He drinks 2 cups of caffeinated beverage per day.? He quit smoking cigarettes in 2010.? He denies alcohol use.? He will use marijuana occasionally. [facility] Past Medical History Medical History BMI 32.0-32.9,adult BMI 34.0-34.9,adult BMI 36.0-36.9,adult Hypertension Primary osteoarthritis, right shoulder Surgical History Surgical History History of carpal tunnel release Subacromial impingement of right shoulder Arthroscopic subacromial decompression August 2020 Family History Family History Mother Hypertension Grandparent Family history of cardiovascular disease Family history of congestive heart failure, Onset Age: 80 Father Patient's father is in good health Social History Social History Smoking packs per day: 1 Smoking cigarettes per day: 20.0 Years smoked: 40 Smoking pack-years: 40.0
[2022-09-12 17:44] VITALS: BMI 35.8
== END 2022-08-23 06:27 | disposition home or self-care (01) ==
LOC: ANHCSM 08:14
PROVIDERS: PCP Family Medicine; Visit Provider Family Medicine
DX: G47.33 Obstructive sleep apnea (adult) (pediatric) (principal); I10 Essential (primary) hypertension; Z87.891 Personal history of nicotine dependence; E66.9 Obesity, unspecified; Z68.35 Body mass index [BMI] 35.0-35.9, adult
CPT/HCPCS: 95811

== ENCOUNTER 2022-08-30 11:59 | Outpatient (CLI) | payer MEDICARE, OTHER, SELFPAY ==
--- NOTE | ~2022-08-30 | MR_ITS ---
EXAMINATION: MR lumbar spine wo con DATE: 08/30/2022 12:47 INDICATION: Low back pain. TECHNIQUE: Magnetic resonance imaging (MRI) of the lumbar spine was performed without intravenous con trast. Sequences included sagittal T2-weighted FSE, sagittal T2-weighted FS FSE, sagittal T1-weighted FSE, and axial T2-weighted FSE. COMPARISON: Lumbar spine radiographs 11/16/2021 FINDINGS: Bone alignment is normal. There is mild chronic anterior wedging of T11-L2 vertebral bodies . There are Schmorl's nodes at all levels. There is mildly decreased disc height at L3-L4, L4-L5, and L5-S1 with endplate remodeling. The distal spinal cord signal intensity is normal. The conus medulla ris is at L1-L2. The following disc levels are specifically discussed: L1-L2: The disc is bulging. There is mild bilateral facet joint osteoarthritis. There is mild bilater al neural foraminal stenosis. There is mild central canal stenosis. L2-L3: The disc is bulging and has an annular fissure. There is mild bilateral facet joint osteoarthr itis. There is mild bilateral neural foraminal stenosis. There is mild central canal stenosis. L3-L4: The disc is bulging and has an annular fissure. There is mild right and moderate left facet trey int osteoarthritis. There is mild bilateral neural foraminal stenosis. There is mild central canal st enosis. L4-L5: The disc is bulging and has an annular fissure. There is moderate bilateral facet joint osteoa rthritis. There is moderate right and mild left neural foraminal stenosis. There is mild central tommy l stenosis. L5-S1: The disc is bulging. There is moderate bilateral facet joint osteoarthritis. There is mild nelson ateral neural foraminal stenosis. There is mild central canal stenosis. IMPRESSION: 1. Moderate lumbar spondylosis. Reviewed, dictated and finalized at location A. CAP
== END 2022-08-30 12:00 ==
LOC: MICIMG 12:00
PROVIDERS: PCP Family Medicine; Visit Provider Family Medicine
DX: M54.50 Low back pain, unspecified (principal); M43.06 Spondylolysis, lumbar region
CPT/HCPCS: 72148

== ENCOUNTER → 2022-09-09 10:00 | Outpatient (CLI) | payer MEDICARE, OTHER, SELFPAY ==
--- NOTE | ~2022-09-09 | XR_ITS ---
EXAM: XR hip BI 2V w AP pelvis DATE: 09/09/2022 10:25 HISTORY: R26.9 - Unspecified abnormalities of gait and mobility . COMPARISON: 08/08/2019. FINDINGS: Normal mineralization. No fracture or dislocation. No lytic or blastic lesion. Mild degene rative change in the lumbar spine, bilateral hips, and pubic symphysis. Minimal scattered pelvic enth esopathy. No erosion or periosteal change. Pelvic phleboliths. Soft tissues within normal limits. IMPRESSION: Mild bilateral hip osteoarthritis. Reviewed, dictated and finalized at location K. ODE WASHER
== END ==
PROVIDERS: PCP Family Medicine; Visit Provider Family Medicine
DX: R26.9 Unspecified abnormalities of gait and mobility (principal); M16.0 Bilateral primary osteoarthritis of hip
CPT/HCPCS: 73521

== ENCOUNTER → 2023-02-22 14:45 | Outpatient (CLI) | payer MEDICARE, OTHER, SELFPAY ==
--- NOTE | ~2023-02-22 | MR_ITS ---
EXAMINATION: MR brain/brain stem wo con DATE: 02/22/2023 15:29 INDICATION: Mild cognitive impairment. Memory loss. TECHNIQUE: Magnetic resonance imaging (MRI) of the brain and brainstem was performed without intraven ous contrast. COMPARISON: None. FINDINGS: There is no intracranial hemorrhage, acute infarction, or abnormal intracranial mass lesion . The ventricles are normal in size. The paranasal sinuses are clear. The orbits are normal. The mast oid air cells are normal. IMPRESSION: 1. Normal brain. Reviewed, dictated and finalized at location E. IMPRESSION: 1. Normal brain.
== END ==
PROVIDERS: PCP Family Medicine; Visit Provider Family Medicine
DX: G31.84 Mild cognitive impairment of uncertain or unknown etiology (principal)
CPT/HCPCS: 70551

== ENCOUNTER 2024-12-09 09:31 | Emergency (ER) | payer MEDICARE, OTHER, SELFPAY ==
--- NOTE | ~2024-12-09 | XR_ITS ---
CHEST RADIOGRAPH, PA AND LATERAL CLINICAL HISTORY: cough,chest congestion, rib pain with cough, prev smoker . COMPARISON: 12/15/2021 TECHNIQUE: PA and lateral views of the chest. FINDINGS The cardiomediastinal silhouette is unremarkable. The lungs are clear. Visualized osseous structures and soft tissues are unremarkable. IMPRESSION: No focal infiltrate or effusion. Reviewed, dictated and finalized at location A.
[2024-12-09 09:49] VITALS: BP 132/95; PULSE 72; RESP 16; TEMP 36.7; O2SAT 99
--- NOTE | 2024-12-09 09:50 | ED_ITS ---
HPI - URI/Sore Throat General Chief Complaint: Upper Respiratory Infection Stated Complaint: chest congestion/ cough Time Seen by Provider: 12/09/24 09:42 Source: patient Mode of arrival: ambulatory Limitations: no limitations History of Present Illness HPI Narrative: Jose Ramon is a 69-year-old male patient presenting to the clinic today with complaints of chest congestion and cough x2 days. He denies any fevers, chills, or body aches. States that he is coughing so hard is keeping him up at night and also causing some rib pain. Having productive cough with clear phlegm. No history of COPD or asthma. He is a former smoker. MD elicited complaint: sore throat and nasal congestion Related Data Home Medications ?Medication ?Instructions ?Recorded ?Confirmed ?Last Taken ?Type tramadol 50 mg tablet mg 12/09/24 Unknown History Allergies Allergy/AdvReac Type Severity Reaction Status Date / Time No Known Allergies Allergy Verified 12/09/24 09:48 Review of Systems Review of Systems: Pertinent positives per HPI. Patient denies any fever, chills, rash, headache, visual changes, dizziness, chest pain, palpitations, nausea, vomiting, diarrhea, constipation, abdominal pain, or any urinary issues. [facility] Past Medical History Medical History Lumbar degenerative disc disease Chronic low back pain RINKU (obstructive sleep apnea) Daytime hypersomnia Low testosterone Shortness of breath Hip pain Low back pain Erectile dysfunction Contact dermatitis Poison rosalva Pneumonia BMI 36.0-36.9,adult BMI 34.0-34.9,adult Primary osteoarthritis, right shoulder Hypertension BMI 32.0-32.9,adult Cervical radiculopathy Trigger finger, acquired Lumbar radiculopathy Essential (primary) hypertension Impaired fasting glucose Mixed hyperlipidemia Polycythemia Testicular hypofunction Surgical History Surgical History H/O radiofrequency ablation (RFA) of nerve of lumbar spine Subacromial impingement of right shoulder Arthroscopic subacromial decompression August 2020 Trigger finger, left ring finger Trigger finger release November 2020 History of carpal tunnel release Family History Family History Mother Hypertension Grandparent Family history of cardiovascular disease Family history of congestive heart failure, Onset Age: 80 Father Patient's father is in good health Social History Social History Smoking packs per day: 1 Smoking cigarettes per day: 20.0 Years smoked: 40 Smoking pack-years: 40.00 Smoking status: Former smoker Tobacco type: cigarettes Smoking end date: 11/22/10 Alcohol intake: never Substance use: current Substance use type: marijuana Last use: 2011 Do You Feel Safe in your Home?: Yes Lack of Transportation: No Lack of Food: Sometimes True Current Housing: I Have Housing Concerned About Future Housing: No Difficulty Paying Gas/Electric Bills: No Difficulty Paying for Meds: No Currently Unemployed: No Education: High School Diploma/GED Difficulty w/ Childcare or Family Care: No Living arrangements: with family Occupation/Education: occupation 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 There is no relevant family history pertinent to the patient complaint. Exam Narrative: General: Well-developed, well nourished, in no apparent distress Head: Normocephalic, atraumatic Eyes: Pupils equally round and reactive to light bilaterally, EOM intact, sclera and conjunctive clear, no discharge, lids normal Ears: TMs intact and clear, ear canals clear, no drainage, grossly hearing normal. Nose: Nares patent, no discharge, no inflammation, no sinus tenderness. Mouth: Oral pharynx without lesions or masses, good dentition, MMM. Neck: Supple, trachea midline, no enlargement of anterior or posterior cervical nodes, no thyroid masses or goiter palpable. Cardio: Regular rate and rhythm, s1 and s2 normal, no murmur appreciated. Resp: Clear to auscultation bilaterally, no rhonchi, rales, wheezing or rubs Course Course Emergency Course: Portions of this record may have been created with voice recognition software. Level of Care: Express Care Visit Vital Signs Vital signs: Vital signs reviewed MDM - URI/Sore Throat MDM Narrative Medical decision making narrative: At the time of visit patient is resting comfortably on the exam table. Patient appears to be nontoxic. Diagnostics: Chest x-ray was negative for any acute cardiopulmonary process. Labs: COVID and influenza testing was negative. Plan: I suspect patient has bronchitis. Prescription for albuterol inhaler, Tessalon Perles, and prednisone was sent to the pharmacy. Supportive measures were discussed with the patient and they voiced understanding discharge instructions and agrees to treatment plan. Return precautions reviewed Differential Diagnosis Differential diagnosis: Likely upper respiratory infection, otitis media, sinusitis, viral infection, bronchitis, influenza, pharyngitis and other (COVID) Imaging Data Radiologist's impression: ITS Impressions Chest X-Ray 12/09/24 10:06 IMPRESSION: No focal infiltrate or effusion. Discharge Plan Discharge Clinical Impression: Bronchitis Patient Disposition: Home, Self-Care Condition: Stable Instructions: Antibiotic Form, Acute Bronchitis (ED) Additional Instructions: COVID and influenza testing was negative. Chest x-rays negative for any acute cardiopulmonary process. Take prescription medications only as prescribed-albuterol inhaler, Tessalon Perles, and prednisone Increase fluids and stay well hydrated Tylenol/motrin for pain/fever Flonase and OTC antihistamines as directed Vicks vapor rub to open sinuses Sinus rinses for congestion Cepacol spray, cough drops, throat lozenges, warm tea with honey/lemon, gargle salt water to soothe throat BRAT diet for diarrhea Clear liquids x 24 hours then advance as tolerated for nausea/vomiting Go to the ED if you develop a worsening in your condition- high fever not controlled by Tylenol or Motrin, dehydration, weakness, lethargy, shortness of breath, or chest pain. Follow up with your PCP in 3-5 days if symptoms persist. Patient Language: Turkish Prescriptions: New benzonatate 200 mg capsule 200 mg PO TID 7 Days Qty: 21 0RF prednisone 20 mg tablet 40 mg PO DAILY 5 Days Qty: 10 0RF albuterol sulfate 90 mcg/actuation HFA aerosol inhaler 2 puff inhalation Q4-6H PRN (Reason: shortness of breath or wheezing) 30 Days Qty: 8.5 0RF No Action tramadol 50 mg tablet alcohol swabs Pads, Medicated 1 pad topical .COMPLEX Qty: 100 0RF Rx Instructions: 1 pad topically before injection; (DME) needle (disp) 25 gauge 25 gauge x 1 1/2 needle See Rx Instructions .Route Qty: 100 0RF Rx Instructions: As directed (DME) syringe with needle 3 mL 25 x 1 1/2 syringe See Rx Instructions .Route Qty: 100 0RF Rx Instructions: As directed sildenafil [Viagra] 100 mg tablet 100 mg PO DAILY PRN (Reason: sexual activity) Qty: 30 1RF irbesartan-hydrochlorothiazide 300-12.5 mg tablet 1 tablet PO DAILY Qty: 90 1RF donepezil 10 mg tablet 10 mg PO QHS Qty: 90 1RF testosterone cypionate 200 mg/mL oil 200 mg IM .2 weeks Qty: 10 1RF Follow-up/Referrals: Adela Farrell DO [Primary Care Provider] - Time of Disposition: 10:17 Quality NIHSS Nursing Documentation ED NIHSS nursing documentation: reviewed/agree
[2024-12-09 10:20] LABS: EDCOVIDSCREEN Negative (Negative); EDINFLUASCREEN Negative (Negative); EDINFLUBSCREEN Negative (Negative)
== END 2024-12-09 10:18 | disposition home or self-care (01) ==
PROVIDERS: Emergency Provider Nurse Practitioner Family; PCP Family Medicine
DX: J40 Bronchitis, not specified as acute or chronic (principal); I10 Essential (primary) hypertension; E78.2 Mixed hyperlipidemia; Z87.891 Personal history of nicotine dependence; Z20.822 Contact with and (suspected) exposure to COVID-19
CPT/HCPCS: 71046; 87426; 87804; 99213; G0463

== ENCOUNTER 2025-02-18 08:32 | Emergency (ER) | payer MEDICARE, OTHER, SELFPAY ==
[2025-02-18 08:43] VITALS: BP 144/95; PULSE 63; RESP 16; TEMP 36.4; O2SAT 100
--- NOTE | 2025-02-18 08:43 | ED.WOUNDLAC ---
HPI - Wound/Laceration General Chief Complaint: Wound/Laceration Stated Complaint: R HAND LACERATION Time Seen by Provider: 02/18/25 08:43 Source: patient Mode of arrival: ambulatory Limitations: no limitations History of Present Illness HPI narrative: 69-year-old male presents with complaint of laceration to right hand. Patient cut himself with his pocket knife. Bleeding controlled on arrival. Tetanus not up-to-date. CMS intact. All systems reviewed and negative except as noted above. Related Data Home Medications ?Medication ?Instructions ?Recorded ?Confirmed ?Last Taken ?Type tramadol 50 mg tablet mg 12/09/24 12/11/24 Unknown History Allergies Allergy/AdvReac Type Severity Reaction Status Date / Time No Known Allergies Allergy Verified 12/11/24 11:10 Review of Systems Review of Systems: CONSTITUTIONAL: Denies fever, chills, or sweats. EYES: Denies visual changes, redness, or discharge. ENT: Denies rhinorrhea, congestion, sore throat, or otalgia. CARDIOVASCULAR: Denies chest pain, palpitations, or edema. RESPIRATORY: Denies cough or dyspnea. GASTROINTESTINAL: Denies abdominal pain, nausea, vomiting, or diarrhea. GENITOURINARY: Denies dysuria or hematuria. SKIN: Denies rash or itching. Reports laceration right hand MUSCULOSKELETAL: Denies back pain, joint pain, or myalgia. NEUROLOGIC: Denies headache, numbness, or weakness. PSYCHIATRIC: Denies anxiety or depression. All other systems reviewed are negative, except as documented in HPI. [facility] Past Medical History Medical History Lumbar degenerative disc disease Chronic low back pain RINKU (obstructive sleep apnea) Daytime hypersomnia Low testosterone Shortness of breath Hip pain Low back pain Erectile dysfunction Contact dermatitis Poison rosalva Pneumonia BMI 36.0-36.9,adult BMI 34.0-34.9,adult Primary osteoarthritis, right shoulder Hypertension BMI 32.0-32.9,adult Cervical radiculopathy Trigger finger, acquired Lumbar radiculopathy Essential (primary) hypertension Impaired fasting glucose Mixed hyperlipidemia Polycythemia Testicular hypofunction Surgical History Surgical History H/O radiofrequency ablation (RFA) of nerve of lumbar spine Subacromial impingement of right shoulder Arthroscopic subacromial decompression August 2020 Trigger finger, left ring finger Trigger finger release November 2020 History of carpal tunnel release Family History Family History Mother Hypertension Grandparent Family history of cardiovascular disease Family history of congestive heart failure, Onset Age: 80 Father Patient's father is in good health Social History Social History Smoking packs per day: 1 Smoking cigarettes per day: 20.0 Years smoked: 40 Smoking pack-years: 40.00 Smoking status: Former smoker Tobacco type: cigarettes Smoking end date: 11/22/10 Alcohol intake: never Substance use: current Substance use type: marijuana Last use: 2011 Do You Feel Safe in your Home?: Yes Lack of Transportation: No Lack of Food: Sometimes True Current Housing: I Have Housing Concerned About Future Housing: No Difficulty Paying Gas/Electric Bills: No Difficulty Paying for Meds: No Currently Unemployed: No Education: High School Diploma/GED Difficulty w/ Childcare or Family Care: No Living arrangements: with family Occupation/Education: occupation 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 There is no relevant family history pertinent to the presenting complaint. Exam Narrative: GENERAL: This is a well-nourished, well-developed patient, in no apparent distress. HEAD: normocephalic, atraumatic. EYES: PERRL. Sclera clear/white. Vision is grossly intact. EARS: External ears normal NOSE: External nose normal NECK: Neck supple, non-tender without lymphadenopathy, masses or thyromegaly. CARDIOVASCULAR: Regular rate and rhythm without murmurs, gallops, or rubs. RESPIRATORY: Clear to auscultation. Breath sounds equal bilaterally. No wheezes, rales, or rhonchi. SKIN: warm, Dry, with no suspicious lesions or rash, good texture and turgor. laceration dorsal aspect, R 1st metatarsal approx. 1 cm NEURO: awake, alert, and oriented to person, place and time. There were no obvious focal neurologic abnormalities. EXTREMITIES: No joint tenderness, effusion, or edema noted. Course Course Level of Care: Express Care Visit Vital Signs Vital signs: Vital Signs Temperature 36.4 C L 02/18/25 08:43 Pulse Rate 63 02/18/25 08:43 Respiratory Rate 16 02/18/25 08:43 Blood Pressure 144/95 H 02/18/25 08:43 Pulse Oximetry 100 02/18/25 08:43 Temperature 36.4 C L 02/18/25 08:43 Pulse Rate 63 02/18/25 08:43 Respiratory Rate 16 02/18/25 08:43 Blood Pressure 144/95 H 02/18/25 08:43 Pulse Oximetry 100 02/18/25 08:43 Reviewed Procedures Laceration Laceration 1: Date: 02/18/25 Time: 08:45 Site: hand Side (If applicable): right Size (cm): 1 Description: linear Depth: simple, single layer Local Anesthetic: lidocaine 1% Amount of anesthesia used (mL): 2 Pre-repair: wound explored and irrigated ====== Skin Level ====== Skin layer closed with: nylon Size (cm): 4-0 Number of sutures: 4 Technique: simple, interrupted ====== Subcutaneous Layer ====== ====== Muscle Layer ====== ====== Tendon Layer ====== MDM - Wound/Laceration MDM Narrative Medical decision making narrative: Laceration sutured without complication. Patient well-appearing, nontoxic. CMS intact. Recommend follow-up 7-10 day for suture removal. patient is non-toxic appearing and is in no distress. Patient is appropriate for outpatient treatment and follow-up. Discharge Plan Discharge Clinical Impression: Laceration of hand, right Qualifiers: Encounter type: initial encounter Foreign body presence: unspecified Qualified Code(s): S61.411A - Laceration without foreign body of right hand, initial encounter Patient Disposition: Home Condition: Stable Instructions: Antibiotic Form, Laceration (ED) Additional Instructions: Keep sutures clean and dry. May wash with soap and water, pat dry with towel. May apply Vaseline or Aquaphor twice a day. Take antibiotic as prescribed to prevent wound infection. Follow-up in 7-10 days for suture removal. Patient Language: Tajik Prescriptions: New cephalexin 500 mg capsule 500 mg PO BID 7 Days Qty: 14 0RF No Action tramadol 50 mg tablet benzonatate 200 mg capsule 200 mg PO TID 7 Days Qty: 21 0RF prednisone 20 mg tablet 40 mg PO DAILY 5 Days Qty: 10 0RF albuterol sulfate 90 mcg/actuation HFA aerosol inhaler 2 puff inhalation Q4-6H PRN (Reason: shortness of breath or wheezing) 30 Days Qty: 8.5 0RF alcohol swabs Pads, Medicated 1 pad topical .COMPLEX Qty: 100 0RF Rx Instructions: 1 pad topically before injection; (DME) needle (disp) 25 gauge 25 gauge x 1 1/2 needle See Rx Instructions .Route Qty: 100 0RF Rx Instructions: As directed (DME) syringe with needle 3 mL 25 x 1 1/2 syringe See Rx Instructions .Route Qty: 100 0RF Rx Instructions: As directed amoxicillin-pot clavulanate 875-125 mg tablet 1 tablet PO BID Qty: 20 0RF sildenafil [Viagra] 100 mg tablet 100 mg PO DAILY PRN (Reason: sexual activity) Qty: 30 1RF irbesartan-hydrochlorothiazide 300-12.5 mg tablet 1 tablet PO DAILY Qty: 90 1RF donepezil 10 mg tablet 10 mg PO QHS Qty: 90 1RF testosterone cypionate 200 mg/mL oil 200 mg IM .2 weeks Qty: 10 1RF ipratropium-albuterol 0.5 mg-3 mg(2.5 mg base)/3 mL solution for nebulization 3 ml inhalation Q6H PRN (Reason: shortness of breath or wheezing) Qty: 180 0RF Follow-up/Referrals: Adela Farrell DO [Primary Care Provider] - Time of Disposition: 09:05
[2025-02-18] MEDS: TETANUS/DIPHTHERIA TOXOIDS ADSORB 0.5 ML SYRINGE (*BKC) IM (08:51)
== END 2025-02-18 09:06 | disposition home or self-care (01) ==
PROVIDERS: Emergency Provider Nurse Practitioner Family; PCP Family Medicine
DX: S61.411A Laceration without foreign body of right hand, initial encounter (principal); W26.0XXA Contact with knife, initial encounter; I10 Essential (primary) hypertension; E78.2 Mixed hyperlipidemia; G47.33 Obstructive sleep apnea (adult) (pediatric); Z87.891 Personal history of nicotine dependence; Z23 Encounter for immunization
CPT/HCPCS: 12001; 90471; 90714; 99213; G0463; J2003